=== PATIENT | female | born 1990 | race Caucasian/White ===

== ENCOUNTER 2017-01-16 00:03 | Emergency (ER) | payer OTHER ==
[~2017-01-16] VITALS: Ht 162.6 cm; Wt 81.6 kg
[2017-01-16 00:05] VITALS: BP_SYST 130
[2017-01-16 00:45] LABS: BASOPHILS % (AUTO) 0.6 % (0.0-2.0); EOSINOPHILS # (AUTO) 0.1 K/uL (0.0-0.4); EOSINOPHILS % (AUTO) 1.8 % (0.0-4.0); HEMATOCRIT 41.5 % (36-48); HEMOGLOBIN 13.9 g/dL (12.0-16.0); LYMPHOCYTES # (AUTO) 2.2 K/uL (1.0-5.5); LYMPHOCYTES % (AUTO) 35.8 % (20.5-51.5); MEAN CORPUSCULAR HEMOGLOBIN 30 pg (27-31); MEAN CORPUSCULAR HGB CONC 34 % (32-36); MEAN CORPUSCULAR VOLUME 91 fL (79.0-98.0); MONOCYTES # (AUTO) 0.3 K/uL (0.0-1.0); MONOCYTES % (AUTO) 5.1 % (1.7-9.3); NEUTROPHILS # (AUTO) 3.5 K/uL (1.8-7.7); NEUTROPHILS % (AUTO) 56.7 % (40.0-70.0); PLATELET COUNT (AUTO) 222 K/uL (130-430); RED BLOOD CELL COUNT(AUTO) 4.57 MIL/uL (4.2-6.2); RED CELL DISTRIBUTION WIDTH 12.3 % (9.0-15.0); WHITE BLOOD COUNT (AUTO) 6.1 K/uL (4.8-10.8)
[2017-01-16 00:50] LABS: CALCIUM 8.8 mg/dL (8.4-11.0); CREATININE 0.81 mg/dL (0.55-1.30); POTASSIUM 3.4 mmol/L (3.5-5.1)
[2017-01-16 00:56] LABS: ALBUMIN 3.8 g/dL (3.4-4.8); TOTAL BILIRUBIN 0.3 mg/dL (0.0-1.0); TOTAL PROTEIN, SERUM 7.4 g/dL (6.4-8.3)
[2017-01-16] MEDS ORDERED: LORazepam 1 MG TABLET PO ONE (01:00)
[2017-01-16 01:50] VITALS: BP_SYST 105
== END 2017-01-16 01:50 | disposition home or self-care (01) ==
LOC: SED 00:03
DX: R07.89 Other chest pain (principal); Z88.8 Allergy status to other drugs, medicaments and biological substances; Z91.040 Latex allergy status
CPT/HCPCS: 36415; 71010; 80053; 84484; 85025; 93005; 99285

== ENCOUNTER 2018-10-13 12:04 | Emergency (ER) | payer MEDICAID, OTHER ==
[~2018-10-13] VITALS: Ht 162.6 cm; Wt 90.7 kg
[2018-10-13 12:06] VITALS: BP_SYST 141
--- NOTE | 2018-10-13 15:06 | NUR ---
Unable to locate patient to bring back to triage.
--- NOTE | 2018-10-13 15:15 | NUR ---
Unable to locate patient to bring back to room.
== END 2018-10-13 15:06 | disposition left against medical advice (07) ==
LOC: SED 12:04
DX: M79.602 Pain in left arm (principal); Z53.21 Procedure and treatment not carried out due to patient leaving prior to being seen by health care provider

== ENCOUNTER 2019-02-01 15:53 | Emergency (ER) | payer MEDICAID ==
[~2019-02-01] VITALS: Ht 162.6 cm; Wt 77.1 kg
[2019-02-01 16:17] VITALS: BP_SYST 106
[2019-02-01 16:40] VITALS: BP_SYST 106
== END 2019-02-01 16:40 | disposition home or self-care (01) ==
LOC: SED 15:53
DX: S80.862A Insect bite (nonvenomous), left lower leg, initial encounter (principal); S80.861A Insect bite (nonvenomous), right lower leg, initial encounter; Z88.6 Allergy status to analgesic agent; Z88.8 Allergy status to other drugs, medicaments and biological substances; Z91.040 Latex allergy status; W57.XXXA Bitten or stung by nonvenomous insect and other nonvenomous arthropods, initial encounter; Y93.89 Activity, other specified; Y92.89 Other specified places as the place of occurrence of the external cause; Y99.8 Other external cause status
CPT/HCPCS: 99283

== ENCOUNTER 2019-02-07 08:57 | Emergency (ER) | payer MEDICAID ==
[~2019-02-07] VITALS: Ht 162.6 cm; Wt 77.1 kg
[2019-02-07 09:15] VITALS: BP_SYST 107
[2019-02-07 11:01] VITALS: BP_SYST 131
== END 2019-02-07 11:02 | disposition home or self-care (01) ==
LOC: SED 08:57
DX: J06.9 Acute upper respiratory infection, unspecified (principal); J45.909 Unspecified asthma, uncomplicated; G44.209 Tension-type headache, unspecified, not intractable; R11.2 Nausea with vomiting, unspecified; Z88.6 Allergy status to analgesic agent; Z91.040 Latex allergy status
CPT/HCPCS: 99283; J7030

== ENCOUNTER 2019-03-13 12:05 | Emergency (ER) | payer MEDICAID ==
[~2019-03-13] VITALS: Ht 162.6 cm; Wt 72.6 kg
--- NOTE | 2019-03-13 12:14 | NUR ---
Patient to ER bed 06 to gown for evaluation. Side rails up.
[2019-03-13 12:15] VITALS: BP_SYST 109
--- NOTE | 2019-03-13 12:45 | NUR ---
Patient presented to ER with C/O Hypoglycemia. Patient A&Ox4, afebrile, ambulatory to ER, denies pain, denies N/V/D. Patient states she has new diagnosis of diabetes type 1. Patient states she checked glucose this AM before breakfast(39) per MD order, glucose was 39. Patient states she had breakfast, rechecked glucose at home (76), took PO meds: Metapress & Glucose tablet, called PMD office. BUSINESS IMPROVEMENT MANAGER at PMD office, Dr. Clarence Montoya referred patient to ER.
--- NOTE | 2019-03-13 13:12 | NUR ---
ER Dr. Stevenson at bedside examining patient.
[2019-03-13 13:40] LABS: BASOPHILS # (AUTO) 0.1 K/uL (0.0-0.2); BASOPHILS % (AUTO) 0.9 % (0.0-2.0); EOSINOPHILS # (AUTO) 0.1 K/uL (0.0-0.4); EOSINOPHILS % (AUTO) 0.8 % (0.0-4.0); HEMATOCRIT 35.9 % (36-48); HEMOGLOBIN 12.2 g/dL (12.0-16.0); LYMPHOCYTES # (AUTO) 2.4 K/uL (1.0-5.5); LYMPHOCYTES % (AUTO) 31.3 % (20.5-51.5); MEAN CORPUSCULAR HEMOGLOBIN 30 pg (27-31); MEAN CORPUSCULAR HGB CONC 34 % (32-36); MEAN CORPUSCULAR VOLUME 90 fL (79.0-98.0); MONOCYTES # (AUTO) 0.5 K/uL (0.0-1.0); MONOCYTES % (AUTO) 6.1 % (1.7-9.3); NEUTROPHILS # (AUTO) 4.7 K/uL (1.8-7.7); NEUTROPHILS % (AUTO) 60.9 % (40.0-70.0); PLATELET COUNT (AUTO) 262 K/uL (130-430); RED CELL DISTRIBUTION WIDTH 14.4 % (9.0-15.0); WHITE BLOOD COUNT (AUTO) 7.8 K/uL (4.8-10.8)
[2019-03-13 13:51] LABS: CREATININE 0.72 mg/dL (0.55-1.30); POTASSIUM 3.6 mmol/L (3.5-5.1)
[2019-03-13 14:05] LABS: ALBUMIN 3.5 g/dL (3.4-4.8); FREE T4 (FREE THYROXINE) 1.1 ng/dl (0.8-1.5); THYROID STIMULATING HORMONE 1.61 uIu/mL (0.36-3.74); TOTAL BILIRUBIN 0.2 mg/dL (0.0-1.0)
--- NOTE | 2019-03-13 15:30 | NUR ---
Patient awake alert sitting up in [facility].
--- NOTE | 2019-03-13 16:15 | NUR ---
ER Dr. Stevenson at bedside discussing test results patient.
[2019-03-13 16:30] VITALS: BP_SYST 109
--- NOTE | 2019-03-13 16:34 | NUR ---
Patient given written and verbal discharge instructions and verbalizes understanding. ER MD discussed with patient the results and treatment provided. Patient in stable condition. ID arm band removed. No Rx given. Patient educated on pain management and to follow up with PMD. Pain Scale 0/10. Opportunity for questions provided and answered. Medication side effect fact sheet provided.
[2019-03-15 11:09] LABS: CORTISOL (SERUM) 2.8 ug/dL (.)
== END 2019-03-13 16:34 | disposition home or self-care (01) ==
LOC: SED 12:05
DX: E16.2 Hypoglycemia, unspecified (principal); J45.909 Unspecified asthma, uncomplicated; Z88.6 Allergy status to analgesic agent; Z88.8 Allergy status to other drugs, medicaments and biological substances; Z91.040 Latex allergy status
CPT/HCPCS: 36415; 80053; 81002; 81025; 82533; 82962; 84439; 84443-TC; 84479; 85025; 99283

== ENCOUNTER 2019-04-20 17:39 | Emergency (ER) | payer MEDICAID ==
[~2019-04-20] VITALS: Ht 162.6 cm; Wt 79.4 kg
[2019-04-20 17:55] VITALS: BP_SYST 115
--- NOTE | 2019-04-20 18:13 | NUR ---
Patient to ER bed 1 to gown for evaluation. Side rails up. Report given to Tam LOAIZA.
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
--- NOTE | 2019-04-20 18:20 | NUR ---
ER Dr. yu at bedside examining patient.
--- NOTE | 2019-04-20 18:20 | NUR ---
ER WHIT Ramirez examining patient.
[2019-04-20] MEDS ORDERED: HYDROcodone/ACETAMIN 7.5-325 MG TAB PO ONE (18:30)
[2019-04-20] MEDS ORDERED: DEXAMETHASONE SOD PHOSPHATE 10 MG/ML VIAL IM ONE (18:30)
--- NOTE | 2019-04-20 18:30 | NUR ---
Patient is unable to provide a urine sample at this time. Patient was informed that WHIT Ramirez would be unable to provide pain medication until a test can be done. Patient verbalized understanding. Ashley made aware.
--- NOTE | 2019-04-20 19:03 | NUR ---
Patient wishes to speak with ASPARAGUS BUNCHER Ashley.
--- NOTE | 2019-04-20 19:08 | NUR ---
Note undone in EDM - 04/20/19 at 1912 by [email or web address] Patient given written and verbal discharge instructions and verbalizes understanding. ER discussed with patient the results and treatment provided. Patient in stable condition. ID arm band removed. Rx of tramadol, tylenol extra, voltaren 1% given. Patient educated on pain management and to follow up with PMD. Pain Scale /, WHIT Ramirez is aware. Opportunity for questions provided and answered. Medication side effect fact sheet provided.
--- NOTE | 2019-04-20 19:08 | NUR ---
Patient given written and verbal discharge instructions and verbalizes understanding. ER MD discussed with patient the results and treatment provided. Patient in stable condition. ID arm band removed. Rx of tramadol, tylenol extra, voltaren 1% given. Patient educated on pain management and to follow up with PMD. Pain Scale 8/10, GARAGE DOOR INSTALLER Ashley is aware. Opportunity for questions provided and answered. Medication side effect fact sheet provided.
[2019-04-20 19:14] VITALS: BP_SYST 115
== END 2019-04-20 19:14 | disposition home or self-care (01) ==
LOC: SED 17:39
DX: M54.17 Radiculopathy, lumbosacral region (principal); R03.0 Elevated blood-pressure reading, without diagnosis of hypertension; J45.909 Unspecified asthma, uncomplicated; Z88.6 Allergy status to analgesic agent; Z88.8 Allergy status to other drugs, medicaments and biological substances; Z91.040 Latex allergy status
CPT/HCPCS: 81025; 96372; 99283; J1100

== ENCOUNTER 2019-06-19 20:33 | Emergency (ER) | payer MEDICAID ==
[~2019-06-19] VITALS: Ht 162.6 cm; Wt 99.8 kg
[2019-06-19 20:40] VITALS: BP_SYST 136
--- NOTE | 2019-06-19 20:45 | NUR ---
Patient to ER bed 6 to gown for evaluation. Side rails up. Report given to NICOLÁS LOAIZA.
--- NOTE | 2019-06-19 20:49 | NUR ---
Pt presents to ER with c/o abdominal pain radiating to throat. Pt A&Ox4. Pt states pain began this morning. Pt states pain is 10/10. Upon inspection, pt has no voice. Pt states history of pneumothorax and asthma. Pt states no nausea or vomiting noted. Will continue to monitor.
--- NOTE | 2019-06-19 20:51 | NUR ---
ER Dr. Encarnacion at bedside examining patient.
[2019-06-19] MEDS ORDERED: PANTOPRAZOLE SODIUM 40 MG TAB PO ONE (21:00)
--- NOTE | 2019-06-19 21:00 | NUR ---
# 20 gauge angiocath placed to L AC. Use of asceptic technique. Opsite placed over site. Blood return noted. Flushed with 10 cc of normal saline. No evidence of infiltration noted. Patient tolerated well.
[2019-06-19] MEDS ORDERED: PANTOPRAZOLE SODIUM 40 MG/VIAL (PROTONIX) IVP ONE (21:15)
--- NOTE | 2019-06-19 21:36 | NUR ---
Pt medicated. Pt tolerated well.
[2019-06-19] MEDS ORDERED: MORPHINE 2 MG/ML INJ. SYRINGE IVP ONE (22:15)
--- NOTE | 2019-06-19 22:40 | NUR ---
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
[2019-06-19 23:34] VITALS: BP_SYST 130
--- NOTE | 2019-06-19 23:34 | NUR ---
Patient given written and verbal discharge instructions and verbalizes understanding. ER MD Encarnacion discussed with patient the results and treatment provided. Patient in stable condition. ID arm band removed. IV catheter removed intact and dressing applied, no active bleeding. Rx of Pepcid given. Patient educated on pain management and to follow up with PMD. Pain Scale 1/10. Opportunity for questions provided and answered. Medication side effect fact sheet provided.
== END 2019-06-19 23:34 | disposition home or self-care (01) ==
LOC: SED 20:33
DX: R12 Heartburn (principal); K21.9 Gastro-esophageal reflux disease without esophagitis; Z88.6 Allergy status to analgesic agent; Z91.040 Latex allergy status; Z88.8 Allergy status to other drugs, medicaments and biological substances; J45.909 Unspecified asthma, uncomplicated; Z98.890 Other specified postprocedural states
CPT/HCPCS: 96374; 96375; 99283; C9113; J2270

== ENCOUNTER 2019-08-29 07:33 | Emergency (ER) | payer OTHER, MEDICAID ==
[~2019-08-29] VITALS: Ht 162.6 cm; Wt 102.5 kg
[2019-08-29 07:33] VITALS: BP_SYST 108
--- NOTE | 2019-08-29 07:33 | NUR ---
BROUGHT BACK TO BED #5 AND TRIAGED, PT AMBULATORY, REPORT GIVEN TO ESTELITA
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
--- NOTE | 2019-08-29 07:37 | NUR ---
DR SANTOS AT BEDSIDE FOR EVALUATION
--- NOTE | 2019-08-29 08:19 | NUR ---
XR at bedside for exam.
--- NOTE | 2019-08-29 08:21 | NUR ---
Report given to FADIA Ramos.
[2019-08-29] MEDS ORDERED: NAPROXEN 250 MG TABLET PO ONE (08:30)
--- NOTE | 2019-08-29 08:40 | NUR ---
Patient given written and verbal discharge instructions and verbalizes understanding. ER MD discussed with patient the results and treatment provided. Patient in stable condition. ID arm band removed. Rx of NAPROXYN given. Patient educated on pain management and to follow up with PMD. Pain Scale 1/10. Opportunity for questions provided and answered. Medication side effect fact sheet provided.
[2019-08-29 08:42] VITALS: BP_SYST 110
== END 2019-08-29 08:40 | disposition home or self-care (01) ==
LOC: SED 07:33
DX: S83.92XA Sprain of unspecified site of left knee, initial encounter (principal); J45.909 Unspecified asthma, uncomplicated; E16.2 Hypoglycemia, unspecified; Z88.6 Allergy status to analgesic agent; Z88.8 Allergy status to other drugs, medicaments and biological substances; Z91.040 Latex allergy status; W18.39XA Other fall on same level, initial encounter; Y93.89 Activity, other specified; Y92.89 Other specified places as the place of occurrence of the external cause; Y99.8 Other external cause status
CPT/HCPCS: 73564; 99283

== ENCOUNTER 2019-09-03 10:35 | Emergency (ER) | payer OTHER, MEDICAID ==
[~2019-09-03] VITALS: Ht 162.6 cm; Wt 102.5 kg
--- NOTE | 2019-09-03 10:47 | NUR ---
Ilana granda in ED - 09/03/19 at 1047 by FARNAZ Patient to bed 3 to [facility] for evaluation. Side rails up. Report given to FADIA Mccloud.
--- NOTE | 2019-09-03 10:50 | NUR ---
PATIENT TO ER #5, PLACED ON MONITOR, SAO2 ABP
[2019-09-03] MEDS ORDERED: NACL 0.9% 1,000 ML IV ONE (11:00)
[2019-09-03 11:14] VITALS: BP_SYST 111
[2019-09-03] MEDS ORDERED: PHEL5 PO (11:14)
[2019-09-03] MEDS ORDERED: ACET-2634 PO (11:14)
[2019-09-03] MEDS ORDERED: FLOEARD EACH EAR (11:14)
--- NOTE | 2019-09-03 11:24 | NUR ---
KNEE BRACE IN PLACE, LEFT KNEE
--- NOTE | 2019-09-03 11:45 | NUR ---
rPatient transported to radiology via wheelchar, accompanied by medardostaff.
[2019-09-03 11:51] LABS: BASOPHILS % (AUTO) 0.5 % (0.0-2.0); HEMATOCRIT 42.1 % (36-48); HEMOGLOBIN 13.7 g/dL (12.0-16.0); LYMPHOCYTES # (AUTO) 0.9 K/uL (1.0-5.5); LYMPHOCYTES % (AUTO) 13.3 % (20.5-51.5); MEAN CORPUSCULAR HEMOGLOBIN 29 pg (27-31); MEAN CORPUSCULAR HGB CONC 33 % (32-36); MEAN CORPUSCULAR VOLUME 89 fL (79.0-98.0); MONOCYTES # (AUTO) 0.6 K/uL (0.0-1.0); MONOCYTES % (AUTO) 8.2 % (1.7-9.3); NEUTROPHILS # (AUTO) 5.3 K/uL (1.8-7.7); PLATELET COUNT (AUTO) 228 K/uL (130-430); RED BLOOD CELL COUNT(AUTO) 4.73 MIL/uL (4.2-6.2); RED CELL DISTRIBUTION WIDTH 15.1 % (9.0-15.0); WHITE BLOOD COUNT (AUTO) 6.8 K/uL (4.8-10.8)
[2019-09-03 12:01] LABS: CALCIUM 8.9 mg/dL (8.4-11.0); CREATININE 0.79 mg/dL (0.55-1.30); POTASSIUM 3.7 mmol/L (3.5-5.1)
[2019-09-03 12:06] LABS: ALBUMIN 3.8 g/dL (3.4-4.8); TOTAL BILIRUBIN 0.4 mg/dL (0.0-1.0)
[2019-09-03] MEDS ORDERED: OSELTAMIVIR PHOSPHATE 75 MG CAPSULE PO ONE (12:15)
[2019-09-03 12:37] LABS: BILIRUBIN,URINE NEGATIVE (NEGATIVE); BLOOD, URINE NEGATIVE (NEGATIVE); CLARITY/URINE CLOUDY (CLEAR); COLOR,URINE YELLOW (YELLOW); GLUCOSE,URINE NEGATIVE (NEGATIVE); KETONES,URINE 1+ (NEGATIVE); LEUKOCYTE ESTERASE ,URINE NEGATIVE (NEGATIVE); NITRITE, URINE NEGATIVE (NEGATIVE); PROTEIN URINE TRACE (NEGATIVE)
[2019-09-03 12:57] LABS: BACTERIA,URINE None Seen /HPF (None Seen); RBC,URINE 0-3 /HPF (0-3); WBC,URINE 0-3 /HPF (0-3)
[2019-09-03 12:58] LABS: URINE AMORPHOUS URATE 4+ /HPF (None Seen)
--- NOTE | 2019-09-03 13:20 | NUR ---
Patient given written and verbal discharge instructions and verbalizes understanding. ER MD discussed with patient the results and treatment provided. Patient in stable condition. ID arm band removed. IV catheter removed intact and dressing applied, no active bleeding. Rx of Tamiflu given. Patient educated on pain management and to follow up with PMD. Pain Scale 0/10. Opportunity for questions provided and answered. Medication side effect fact sheet provided.
[2019-09-03 13:50] VITALS: BP_SYST 111
== END 2019-09-03 13:50 | disposition home or self-care (01) ==
LOC: SED 10:35
DX: J10.1 Influenza due to other identified influenza virus with other respiratory manifestations (principal); Z88.8 Allergy status to other drugs, medicaments and biological substances; Z91.040 Latex allergy status; Z79.899 Other long term (current) drug therapy; J45.909 Unspecified asthma, uncomplicated
CPT/HCPCS: 36415; 71046; 80053; 81000; 83605; 85025; 86710; 87040; 87086; 99284; G9035; J7030; 99285

== ENCOUNTER 2019-10-26 09:00 | Emergency (ER) | payer OTHER, MEDICAID ==
[~2019-10-26] VITALS: Ht 165.1 cm; Wt 99.8 kg
[~2019-10-26 09:00] MED LIST: ACET-2634 PO; FLOEARD EACH EAR; PHEL5 PO
[2019-10-26 09:15] VITALS: BP_SYST 108
[2019-10-26] MEDS ORDERED: CEPHALEXIN 500 MG CAPSULE PO ONE (09:30)
[2019-10-26] MEDS ORDERED: DIPHENHYDRAMINE HCL 25 MG CAPSULE PO ONE (09:30)
[2019-10-26 09:58] VITALS: BP_SYST 132
== END 2019-10-26 09:58 | disposition home or self-care (01) ==
LOC: SED 09:00
DX: L03.116 Cellulitis of left lower limb (principal); J45.909 Unspecified asthma, uncomplicated; Z88.6 Allergy status to analgesic agent; Z88.8 Allergy status to other drugs, medicaments and biological substances; Z91.040 Latex allergy status; Z79.899 Other long term (current) drug therapy
CPT/HCPCS: 99283; Q0163

== ENCOUNTER 2020-03-09 15:39 | Emergency (ER) | payer OTHER, MEDICAID ==
[~2020-03-09] VITALS: Ht 162.6 cm; Wt 104.3 kg
[2020-03-09 15:39] VITALS: BP_SYST 139
--- NOTE | 2020-03-09 15:39 | NUR ---
BROUGHT BACK TO BED #8 AND TRIAGED. REPORT GIVEN TO SHAYLA
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
--- NOTE | 2020-03-09 16:00 | NUR ---
Dr Ellis evaluating patient at bedside
[2020-03-09] MEDS ORDERED: HYDROcodone/ACETAMIN 5-325 MG TAB (NORCO/ VICODIN) PO ONE (16:30)
[2020-03-09 17:43] VITALS: BP_SYST 139
--- NOTE | 2020-03-09 17:44 | NUR ---
Patient given written and verbal discharge instructions and verbalizes understanding. ER MD discussed with patient the results and treatment provided. Patient in stable condition. ID arm band removed. No Rx given. Patient educated on pain management and to follow up with PMD. Pain Scale 3/10 tolerable for pt. Opportunity for questions provided and answered. Medication side effect fact sheet provided.
== END 2020-03-09 17:44 | disposition home or self-care (01) ==
LOC: SED 15:39
DX: S63.502A Unspecified sprain of left wrist, initial encounter (principal); J45.909 Unspecified asthma, uncomplicated; E16.2 Hypoglycemia, unspecified; Z79.899 Other long term (current) drug therapy; Z91.040 Latex allergy status; Z88.6 Allergy status to analgesic agent; Z88.8 Allergy status to other drugs, medicaments and biological substances; W22.8XXA Striking against or struck by other objects, initial encounter; Y93.89 Activity, other specified; Y92.89 Other specified places as the place of occurrence of the external cause; Y99.8 Other external cause status
CPT/HCPCS: 99283

== ENCOUNTER 2020-03-10 11:28 | Emergency (ER) | payer OTHER, MEDICAID ==
[~2020-03-10] VITALS: Ht 162.6 cm; Wt 104.3 kg
[2020-03-10 11:28] VITALS: BP_SYST 122
[2020-03-10 12:06] VITALS: BP_SYST 122
== END 2020-03-10 12:07 | disposition home or self-care (01) ==
LOC: SED 11:28
DX: M25.532 Pain in left wrist (principal); J45.909 Unspecified asthma, uncomplicated; E16.2 Hypoglycemia, unspecified; Z79.899 Other long term (current) drug therapy; Z88.6 Allergy status to analgesic agent; Z91.040 Latex allergy status
CPT/HCPCS: 99281; J7030

== ENCOUNTER 2020-03-15 05:30 | Day surgery (SDC) | payer OTHER, MEDICAID ==
[2020-03-08 12:35] LABS: BILIRUBIN,URINE NEGATIVE (NEGATIVE); BLOOD, URINE NEGATIVE (NEGATIVE); CLARITY/URINE CLEAR (CLEAR); COLOR,URINE YELLOW (YELLOW); GLUCOSE,URINE NEGATIVE (NEGATIVE); KETONES,URINE NEGATIVE (NEGATIVE); LEUKOCYTE ESTERASE ,URINE NEGATIVE (NEGATIVE); NITRITE, URINE NEGATIVE (NEGATIVE); PH,URINE 5.5 (5.0-8.0); PROTEIN URINE NEGATIVE (NEGATIVE); UROBILINOGEN,URINE 0.2 (0.2-1.0)
[2020-03-08 12:37] LABS: BASOPHILS # (AUTO) 0.1 K/uL (0.0-0.2); BASOPHILS % (AUTO) 1.2 % (0.0-2.0); EOSINOPHILS % (AUTO) 0.7 % (0.0-4.0); HEMATOCRIT 40.9 % (36-48); HEMOGLOBIN 13.4 g/dL (12.0-16.0); LYMPHOCYTES % (AUTO) 28.2 % (20.5-51.5); MEAN CORPUSCULAR HEMOGLOBIN 29 pg (27-31); MEAN CORPUSCULAR HGB CONC 33 % (32-36); MEAN CORPUSCULAR VOLUME 87 fL (79.0-98.0); MONOCYTES # (AUTO) 0.3 K/uL (0.0-1.0); MONOCYTES % (AUTO) 4.8 % (1.7-9.3); NEUTROPHILS # (AUTO) 4.6 K/uL (1.8-7.7); NEUTROPHILS % (AUTO) 65.1 % (40.0-70.0); PLATELET COUNT (AUTO) 261 K/uL (130-430); RED BLOOD CELL COUNT(AUTO) 4.69 MIL/uL (4.2-6.2); RED CELL DISTRIBUTION WIDTH 14.3 % (9.0-15.0); WHITE BLOOD COUNT (AUTO) 7.1 K/uL (4.8-10.8)
[2020-03-08 12:50] LABS: ALBUMIN 3.6 g/dL (3.4-4.8); CALCIUM 8.9 mg/dL (8.4-11.0); CREATININE 0.69 mg/dL (0.55-1.30); POTASSIUM 3.6 mmol/L (3.5-5.1); TOTAL BILIRUBIN 0.3 mg/dL (0.0-1.0)
[2020-03-08 13:15] LABS: PROTHROMBIN TIME 10.5 SECS (9.5-12.5)
[~2020-03-15] VITALS: Ht 162.6 cm; Wt 104.3 kg
[2020-03-15 05:57] LABS: HCG,QUAL RESULT NEGATIVE (NEGATIVE)
[2020-03-15] MEDS ORDERED: CEFAZOLIN SOD 2 GM in D5W 50 ML IV ONE (07:00)
[2020-03-15] MEDS ORDERED: ROCURONIUM BROMIDE 10 MG/ML (ZEMURON) IV ONE (07:30)
[2020-03-15] MEDS ORDERED: BUPIVACAINE /EPINEPHRINE/PF 0.25% 30 ML VIAL INJ ONE (07:30)
[2020-03-15] MEDS ORDERED: MIDAZOLAM HCL 5 MG/5 ML VIAL IVP ONE (07:30)
[2020-03-15] MEDS ORDERED: NEOSTIGMINE METHYLSULFATE 1 MG/ML, 10 ML VIAL IVP ONE (07:30)
[2020-03-15] MEDS ORDERED: LR 1,000 ML IV.SOLN IV ONE (07:30)
[2020-03-15] MEDS ORDERED: fentaNYL CITRATE/PF 100 MCG/2 ML AMP IVP ONE (07:30)
[2020-03-15] MEDS ORDERED: SUCCINYLCHOLINE CHLORIDE 20 MG/ML(QUELICIN) IVP ONE (07:30)
[2020-03-15] MEDS ORDERED: BUPIVACAINE /EPINEPHRINE/PF 0.5% 30 ML VIAL INJ ONE (07:30)
[2020-03-15] MEDS ORDERED: SEVOFLURANE 15 MIN GAS INH ONE (07:30)
[2020-03-15] MEDS ORDERED: PROPOFOL 200MG/ 20ML VIAL (DIPRIVAN) IV ONE (07:30)
[2020-03-15] MEDS ORDERED: ONDANSETRON HCL 4 MG/2 ML VIAL IVP ONE (07:30)
[2020-03-15] MEDS ORDERED: LR 1,000 ML IV SCH (08:57)
[2020-03-15] MEDS ORDERED: NALOXONE HCL 0.4 MG/ML AMP (NARCAN) IVP PRN (09:00)
[2020-03-15] MEDS ORDERED: HYDROmorphone 1 MG INJ. 1 MG/ML AMPUL IVP PRN ×2 (09:00)
[2020-03-15] MEDS ORDERED: HYDROcodone/ACETAMIN 5-325 MG TAB (NORCO/ VICODIN) PO PRN (09:00)
[2020-03-15] MEDS ORDERED: ONDANSETRON HCL 4 MG/2 ML VIAL IVP PRN ×2 (09:00)
[2020-03-15 12:10] VITALS: BP_SYST 110
[2020-03-15] MEDS: HYDROcodone/ACETAMIN 5-325 MG TAB (NORCO/ VICODIN) PO PRN (12:10)
[2020-03-15] MEDS ORDERED: HYDROcodone/ACETAMIN 5-325 MG TAB (NORCO/ VICODIN) ONE (12:26)
== END 2020-03-15 12:43 | disposition home or self-care (01) ==
LOC: SDS 05:30 → SMU 05:30 → SDS 12:43
PROVIDERS: ATTEND Obstetrics & Gynecology Gynecology
DX: Z30.2 Encounter for sterilization (principal); Z20.828 Contact with and (suspected) exposure to other viral communicable diseases; J45.909 Unspecified asthma, uncomplicated; E66.01 Morbid (severe) obesity due to excess calories; F43.10 Post-traumatic stress disorder, unspecified; F41.9 Anxiety disorder, unspecified; Z79.01 Long term (current) use of anticoagulants; Z79.899 Other long term (current) drug therapy
CPT/HCPCS: 36415; 58670; 80053; 81003; 84703 ×2; 85025; 85610; 85730; 86870 ×2; 86886 ×2; 86900 ×2; 86901 ×2; 87086; C1727; J0330; J0690; J2250; J2405; J2704; J2710; J3010; J3490 ×2; J7060; J7120; U0003

== ENCOUNTER 2020-04-12 09:53 | Emergency (ER) | payer OTHER, MEDICAID ==
[~2020-04-12] VITALS: Ht 162.6 cm; Wt 113.4 kg
[2020-04-12 09:53] VITALS: BP_SYST 106
--- NOTE | 2020-04-12 09:53 | NUR ---
Patient to ER bed 4 to gown for evaluation. Side rails up. Report given to FADIA Beck.
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
--- NOTE | 2020-04-12 10:06 | NUR ---
ER Dr. Denny at bedside examining patient.
--- NOTE | 2020-04-12 10:10 | NUR ---
# 20 gauge angiocath placed to LFA. Use of asceptic technique. Opsite placed over site. Blood return noted. Blood for lab drawn from site. Flushed with 10 cc of normal saline. No evidence of infiltration noted. Patient tolerated well.
[2020-04-12] MEDS ORDERED: MORPHINE 4 MG/ML INJ. SYRINGE IVP ONE (10:15)
[2020-04-12] MEDS ORDERED: ONDANSETRON HCL 4 MG/2 ML VIAL IVP ONE (10:15)
--- NOTE | 2020-04-12 10:20 | NUR ---
chief technologist at bedside collecting blood specimen as ordered by Dr. Denny. Patient tolerated the procedure well.
--- NOTE | 2020-04-12 10:22 | NUR ---
Administered Zofran and Morphine Sulfate IVP as ordered by Dr. Denny. Patient tolerated the medications well. See eMAR for details.
[2020-04-12 10:38] LABS: BASOPHILS # (AUTO) 0.1 K/uL (0.0-0.2); EOSINOPHILS % (AUTO) 0.8 % (0.0-4.0); HEMATOCRIT 39.5 % (36-48); HEMOGLOBIN 13.1 g/dL (12.0-16.0); LYMPHOCYTES # (AUTO) 1.8 K/uL (1.0-5.5); MEAN CORPUSCULAR HEMOGLOBIN 29 pg (27-31); MEAN CORPUSCULAR HGB CONC 33 % (32-36); MEAN CORPUSCULAR VOLUME 86 fL (79.0-98.0); MONOCYTES # (AUTO) 0.4 K/uL (0.0-1.0); MONOCYTES % (AUTO) 5.7 % (1.7-9.3); NEUTROPHILS % (AUTO) 63.5 % (40.0-70.0); PLATELET COUNT (AUTO) 241 K/uL (130-430); RED BLOOD CELL COUNT(AUTO) 4.59 MIL/uL (4.2-6.2); RED CELL DISTRIBUTION WIDTH 15.1 % (9.0-15.0); WHITE BLOOD COUNT (AUTO) 6.3 K/uL (4.8-10.8)
[2020-04-12 10:52] LABS: CALCIUM 8.4 mg/dL (8.4-11.0); CREATININE 0.56 mg/dL (0.55-1.30)
[2020-04-12 10:55] LABS: PROTHROMBIN TIME 10.5 SECS (9.5-12.5)
[2020-04-12] MEDS ORDERED: LORazepam 2 MG/ML VIAL IVP ONE (11:30)
--- NOTE | 2020-04-12 11:39 | NUR ---
Patient is taken to MRI, in stable condition.
--- NOTE | 2020-04-12 15:08 | NUR ---
Soft c-collar applied. Patient tolerated well.
[2020-04-12 15:40] VITALS: BP_SYST 106
--- NOTE | 2020-04-12 15:40 | NUR ---
Patient given written and verbal discharge instructions and verbalizes understanding. ER MD discussed with patient the results and treatment provided. Patient in stable condition. ID arm band removed. IV catheter removed intact and dressing applied, no active bleeding. Rx of Tramadol, Zofran, and Tylenol given. Patient educated on pain management and to follow up with PMD. Pain Scale 0/10. Opportunity for questions provided and answered. Medication side effect fact sheet provided.
== END 2020-04-12 15:40 | disposition home or self-care (01) ==
LOC: SED 09:53
DX: M54.2 Cervicalgia (principal); J45.909 Unspecified asthma, uncomplicated; E16.2 Hypoglycemia, unspecified; Z79.899 Other long term (current) drug therapy; Z88.6 Allergy status to analgesic agent; Z91.040 Latex allergy status
CPT/HCPCS: 36415; 70450; 72125; 72141; 80048; 84703; 85025; 85610; 85730; 96374; 96375; 99285; J2060; J2270; J2405

== ENCOUNTER 2020-04-21 09:24 | Outpatient (CLI) | payer OTHER, MEDICAID | END 2020-04-21 20:33 | disposition home or self-care (01) | LOC: SCT 09:24 | PROVIDERS: ATTEND Psychiatry & Neurology Neurology with Special Qualifications in Child Neurology | DX: G43.909 Migraine, unspecified, not intractable, without status migrainosus (principal); S09.90XA Unspecified injury of head, initial encounter; X58.XXXA Exposure to other specified factors, initial encounter; Y93.9 Activity, unspecified; Y92.9 Unspecified place or not applicable; Y99.9 Unspecified external cause status | CPT/HCPCS: 70450-TC ==

== ENCOUNTER 2020-05-18 07:16 | Emergency (ER) | payer BC, MEDICAID ==
[~2020-05-18] VITALS: Ht 162.6 cm; Wt 103.9 kg
[2020-05-18 07:25] VITALS: BP_SYST 123
[2020-05-18 08:20] VITALS: BP_SYST 123
== END 2020-05-18 08:20 | disposition home or self-care (01) ==
LOC: SED 07:16
DX: U07.1 COVID-19 (principal); J06.9 Acute upper respiratory infection, unspecified; R73.9 Hyperglycemia, unspecified; J45.909 Unspecified asthma, uncomplicated; Z79.899 Other long term (current) drug therapy; Z88.6 Allergy status to analgesic agent; Z91.040 Latex allergy status
CPT/HCPCS: 99283; 81002; C9803; U0003

== ENCOUNTER 2021-02-22 06:31 | Emergency (ER) | payer OTHER, MEDICAID, SELFPAY ==
[~2021-02-22] VITALS: Ht 162.6 cm; Wt 102.1 kg
[2021-02-22 06:40] VITALS: BP_SYST 94
--- NOTE | 2021-02-22 06:40 | NUR ---
Patient to ER TENT 1 to gown for evaluation. Side rails up.
--- NOTE | 2021-02-22 07:02 | NUR ---
DR. [facility]EN [facility].
--- NOTE | 2021-02-22 07:05 | NUR ---
PATIENT AAOX4 AND AMBULATORY C/O SOB AND DIFFICULTY BREATHING SINCE 4:30 AM. HISTORY OF ASTHMA. CAME INTO CONTACT WITH MOTHERS BOYFRIEND WHO TESTED POSITIVE WITH COVID YESTERDAY. STATING HAVING FEVER X 2 DAYS, CHILLS, INCREASED WEAKNESS. CURRENTLY STATING HAVING CHEST DISCOMFORT STATING 9/10. TACHYCARDIA AND TACHYPNEA. TOOK 2 BREATHING NEBULIZED TX AT HOME PRIOR TO ARRIVAL.
--- NOTE | 2021-02-22 07:10 | NUR ---
Assumed care of patient, currently resting in bed, no acute distress noted.
[2021-02-22] MEDS ORDERED: NACL 0.9% 1,000 ML IV ONE ×2 (07:15→10:30)
[2021-02-22] MEDS ORDERED: IPRATROPIUM/ALBUTEROL SULFATE 3 ML AMPUL.NEB (DUONEB) INH ONE (07:15)
--- NOTE | 2021-02-22 07:30 | NUR ---
# 20 gauge angiocath placed to RAC. Use of asceptic technique. Opsite placed over site. Blood return noted. Blood for lab drawn from site. Flushed with 10 cc of normal saline. No evidence of infiltration noted. Patient tolerated well.
[2021-02-22] MEDS ORDERED: PROCHLORPERAZINE EDISYLATE 10 MG/2 ML VIAL IVP ONE (07:45)
[2021-02-22] MEDS ORDERED: PROCHLORPERAZINE EDISYLATE 10 MG/2 ML VIAL ONE (07:47)
--- NOTE | 2021-02-22 08:02 | NUR ---
Radiology at bedside for CXR.
[2021-02-22 08:04] LABS: BASOPHILS % (AUTO) 0.3 % (0.0-2.0); EOSINOPHILS % (AUTO) 0.1 % (0.0-4.0); HEMATOCRIT 40.5 % (36-48); HEMOGLOBIN 13.4 g/dL (12.0-16.0); LYMPHOCYTES # (AUTO) 1.2 K/uL (1.0-5.5); MEAN CORPUSCULAR HEMOGLOBIN 30 pg (27-31); MEAN CORPUSCULAR HGB CONC 33 % (32-36); MEAN CORPUSCULAR VOLUME 89 fL (79.0-98.0); MONOCYTES # (AUTO) 0.5 K/uL (0.0-1.0); MONOCYTES % (AUTO) 6.6 % (1.7-9.3); NEUTROPHILS # (AUTO) 5.6 K/uL (1.8-7.7); PLATELET COUNT (AUTO) 198 K/uL (130-430); RED BLOOD CELL COUNT(AUTO) 4.55 MIL/uL (4.2-6.2); RED CELL DISTRIBUTION WIDTH 14.4 % (9.0-15.0); WHITE BLOOD COUNT (AUTO) 7.3 K/uL (4.8-10.8)
[2021-02-22 08:52] LABS: CALCIUM 8.7 mg/dL (8.4-11.0); CREATININE 0.86 mg/dL (0.55-1.30); POTASSIUM 3.1 mmol/L (3.5-5.1); TOTAL BILIRUBIN 0.2 mg/dL (0.0-1.0)
[2021-02-22 08:53] LABS: ALBUMIN 3.6 g/dL (3.4-4.8)
[2021-02-22] MEDS ORDERED: KCL 20 mEq in 100 mL (PREMIX) 100 ML IV ONE (09:00)
--- NOTE | 2021-02-22 13:00 | NUR ---
Patient given written and verbal discharge instructions and verbalizes understanding. ER MD discussed with patient the results and treatment provided. Patient in stable condition. ID arm band removed. IV catheter removed intact and dressing applied, no active bleeding. No prescriptions given. Patient educated on pain management and to follow up with PMD. Pain Scale 0. Opportunity for questions provided and answered. Medication side effect fact sheet provided.
[2021-02-22 13:06] VITALS: BP_SYST 106
== END 2021-02-22 13:00 | disposition home or self-care (01) ==
LOC: SED 06:31
DX: U07.1 COVID-19 (principal); E87.6 Hypokalemia; R11.2 Nausea with vomiting, unspecified; Z88.6 Allergy status to analgesic agent; Z88.8 Allergy status to other drugs, medicaments and biological substances; Z91.040 Latex allergy status; Z79.899 Other long term (current) drug therapy
CPT/HCPCS: 36415; 71045; 80053; 84702; 85025; 87426; 93005; 94640; 96361; 96365; 96366; 96375; 99285; J0780; J3480; J7030

== ENCOUNTER 2021-04-26 17:51 | Emergency (ER) | payer OTHER, MEDICAID, SELFPAY ==
[~2021-04-26] VITALS: Ht 162.6 cm; Wt 98.0 kg
[2021-04-26 18:17] VITALS: BP_SYST 127
--- NOTE | 2021-04-26 21:00 | NUR ---
CALL PT NAME IN THE WR.NO ANSWER
--- NOTE | 2021-04-26 21:05 | NUR ---
CALL PT NAME IN THE WR.NO ANSWER
--- NOTE | 2021-04-26 21:10 | NUR ---
CALL PT NAME IN THE WR.NO ANSWER
== END 2021-04-26 21:10 | disposition left against medical advice (07) ==
LOC: SED 17:51
DX: H92.01 Otalgia, right ear (principal); Z53.21 Procedure and treatment not carried out due to patient leaving prior to being seen by health care provider

== ENCOUNTER 2021-06-06 18:18 | Emergency (ER) | payer OTHER, MEDICAID ==
[~2021-06-06] VITALS: Ht 172.7 cm; Wt 104.3 kg
[2021-06-06 18:30] VITALS: BP_SYST 115
--- NOTE | 2021-06-06 18:34 | NUR ---
DR SANDHU IN ROOM FOR EXAM.
[2021-06-06] MEDS ORDERED: IPRATROPIUM BROM 0.5 MG/2.5 ML VIAL.NEB (ATROVENT) INH ONE (18:39)
[2021-06-06] MEDS ORDERED: ALBUTEROL SULFATE 0.083% 2.5 MG/3 ML VIAL.NEB INH ONE ×2 (18:39→18:45)
--- NOTE | 2021-06-06 18:41 | NUR ---
PT COMES TO ER WITH C/O SOB SINCE 1100 TODAY, STATES SHE WORKED ALL DAY BUT LEFT WORK 1 HR EARLY TO GO HOME AND ADMINISGTER HERSELF BREATHINFG TXS. SHE DID 3 BREATHING TREATMENTS WITH NO RELIEF. PT IN NAD. RESP EVEN AND UNLABORED, ON RA @98%, LS- MILD WHEEZES SANTOSH UPPER BASES. NO TACHYPNEW, NO RETARCTIONS NOTED. PT ABLE TO SPEAK IN FULL SENTENCES. DENIES ANY CP AT THIS TIME. SKIN W/D/I. RT CALLED FOR TX.
--- NOTE | 2021-06-06 18:44 | NUR ---
Note jesus alberto in EDM - 06/06/21 at 1845 by ADIEL Patient to ER bed 6 to [facility] for evaluation. Side rails up. Report given to LYN LOAIZA.
--- NOTE | 2021-06-06 18:44 | NUR ---
RT AT BEDSIDE.
[2021-06-06] MEDS ORDERED: IPRATROPIUM/ALBUTEROL SULFATE 3 ML AMPUL.NEB (DUONEB) INH ONE ×2 (18:45)
--- NOTE | 2021-06-06 19:58 | NUR ---
Covid test cancelled per md and patient.
[2021-06-06 20:11] VITALS: BP_SYST 110
--- NOTE | 2021-06-06 20:19 | NUR ---
Patient discharged home, a&ox4, stable, discharged instructions given, all questions answered. needs attended. walk to ed door with steady gait.
== END 2021-06-06 20:08 | disposition home or self-care (01) ==
LOC: SED 18:18
DX: J45.901 Unspecified asthma with (acute) exacerbation (principal); Z88.8 Allergy status to other drugs, medicaments and biological substances; Z79.899 Other long term (current) drug therapy
CPT/HCPCS: 94640; 99283; J7613

== ENCOUNTER 2021-10-04 20:15 | Emergency (ER) | payer OTHER, MEDICAID ==
[~2021-10-04] VITALS: Ht 162.6 cm; Wt 96.2 kg
--- NOTE | 2021-10-04 20:15 | NUR ---
Patient triaged and placed in waiting room. VSS and patient appears in no acute distress at this time. Accompanied by self , awaiting available bed, and MD notified of need for MSE.
--- NOTE | 2021-10-04 20:15 | NUR ---
Report given to Dr Gould
--- NOTE | 2021-10-04 20:17 | NUR ---
Pt A&Ox4, ambulatory, intact ROM, no facial drop noted, VSS, respirations even and unlabored, cap refill <3.
[2021-10-04 20:18] VITALS: BP_SYST 118
--- NOTE | 2021-10-04 22:15 | NUR ---
Patient to ER bed 7 to gown for evaluation. Side rails up. Report given to CAMILA LOAIZA(ERWIN).
--- NOTE | 2021-10-04 22:40 | NUR ---
ER Dr. Davenport at bedside examining patient.
[2021-10-04] MEDS ORDERED: MORPHINE 2 MG/ML INJ. SYRINGE IVP ONE (22:45)
[2021-10-04] MEDS ORDERED: PROCHLORPERAZINE EDISYLATE 10 MG/2 ML VIAL IVP ONE (22:45)
[2021-10-04] MEDS ORDERED: DEXAMETHASONE SOD PHOSPHATE 10 MG/ML VIAL IVP ONE (22:45)
[2021-10-04 23:41] LABS: BARBITURATE, URINE NEGATIVE (NEG <=200); BENZODIAZEPINE, URINE NEGATIVE (NEG <=150); CANNABINOID, URINE NEGATIVE (NEG <=50); COCAINE, URINE NEGATIVE (NEG <=150); METHAMPHETAMINES SCREEN,URINE NEGATIVE (NEG <=500); OPIATE, URINE NEGATIVE (NEG <=100); PHENCYCLIDINE SCREEN,URINE NEGATIVE (NEG <=25); UR TRICYCLIC ANTIDEPRESSANTS NEGATIVE (NEG <=300); URINE AMPHETAMINE NEGATIVE (NEG <=500); URINE METHADONE NEGATIVE (NEG <=200); URINE OXYCODONE SCREEN NEGATIVE (NEG <=100); URINE PROPOXYPHENE SCREEN NEGATIVE (NEG <=300)
[2021-10-04 23:50] LABS: BASOPHILS # (AUTO) 0.1 K/uL (0.0-0.2); BASOPHILS % (AUTO) 0.8 % (0.0-2.0); EOSINOPHILS # (AUTO) 0.1 K/uL (0.0-0.4); EOSINOPHILS % (AUTO) 1.2 % (0.0-4.0); HEMATOCRIT 37.6 % (36-48); HEMOGLOBIN 12.5 g/dL (12.0-16.0); LYMPHOCYTES # (AUTO) 2.5 K/uL (1.0-5.5); LYMPHOCYTES % (AUTO) 36.5 % (20.5-51.5); MEAN CORPUSCULAR HEMOGLOBIN 29 pg (27-31); MEAN CORPUSCULAR HGB CONC 33 % (32-36); MEAN CORPUSCULAR VOLUME 88 fL (79.0-98.0); MONOCYTES # (AUTO) 0.5 K/uL (0.0-1.0); MONOCYTES % (AUTO) 6.9 % (1.7-9.3); NEUTROPHILS # (AUTO) 3.7 K/uL (1.8-7.7); NEUTROPHILS % (AUTO) 54.6 % (40.0-70.0); PLATELET COUNT (AUTO) 219 K/uL (130-430); RED BLOOD CELL COUNT(AUTO) 4.27 MIL/uL (4.2-6.2); RED CELL DISTRIBUTION WIDTH 14.4 % (9.0-15.0); WHITE BLOOD COUNT (AUTO) 6.9 K/uL (4.8-10.8)
[2021-10-04 23:53] LABS: ANION GAP 6 (5-15); CALCIUM 9.5 mg/dL (8.4-11.0); CHLORIDE 104 mmol/L (98-107); CREATININE 0.61 mg/dL (0.55-1.30); GLUCOSE 93 mg/dL (70-99); POTASSIUM 3.7 mmol/L (3.5-5.1); SODIUM SERUM 139 mmol/L (136-145); UREA NITROGEN, BLOOD 17 mg/dL (8-21)
[2021-10-04 23:57] LABS: GFR AFRICAN AMERICAN 147 mL/min (>90)
[2021-10-04 23:58] LABS: ALANINE AMINOTRANSFERASE 21 U/L (12-78); ALBUMIN 3.6 g/dL (3.4-4.8); ASPARTATE AMINOTRANSFERASE 12 U/L (10-37); TOTAL BILIRUBIN < 0.1 mg/dL (0.0-1.0)
[2021-10-05] MEDS ORDERED: IOHEXOL 350 mgI/mL, 150 ML INFUS..BTL IV ONE (00:12)
--- NOTE | 2021-10-05 00:15 | NUR ---
Pt consent received for CTA w/contrast.
[2021-10-05] MEDS ORDERED: PHE25 PO (01:22)
[2021-10-05] MEDS ORDERED: BUTA1CAP43 PO (01:22)
[2021-10-05] MEDS ORDERED: DIPHENHYDRAMINE HCL 50 MG CAPSULE PO ONE (01:30)
--- NOTE | 2021-10-05 01:39 | NUR ---
Patient given written and verbal discharge instructions and verbalizes understanding. ER MD Davenport discussed with patient the results and treatment provided. Patient in stable condition. ID arm band removed. IV catheter removed intact and dressing applied, no active bleeding. Rx of Fioricet and Phenergan sent to pharmacy of choice. Patient educated to follow up with PMD for Neuro consult. Pain Scale 0/10. Pt given Benadryl prior to discharge and confirmed she had [employer] transportation picking her up and would not be driving. Opportunity for questions provided and answered. Medication side effect fact sheet provided.
[2021-10-05 01:48] VITALS: BP_SYST 121
== END 2021-10-05 01:48 | disposition home or self-care (01) ==
LOC: SED 20:15
DX: G43.409 Hemiplegic migraine, not intractable, without status migrainosus (principal); J45.909 Unspecified asthma, uncomplicated; Z88.6 Allergy status to analgesic agent; Z88.8 Allergy status to other drugs, medicaments and biological substances; Z91.040 Latex allergy status; Z79.899 Other long term (current) drug therapy
CPT/HCPCS: 36415; 70450; 70496; 76376 ×2; 80053; 80307; 81025; 83735; 85025; 93005; 96374; 96375; 99284; J0780; J1100; J2270; Q0163; Q9967

== ENCOUNTER 2021-12-11 10:52 | Emergency (ER) | payer OTHER, MEDICAID ==
[~2021-12-11] VITALS: Ht 162.6 cm; Wt 94.3 kg
[~2021-12-11 10:52] MED LIST changes: +BUTA1CAP43 PO; +PHE25 PO
[2021-12-11 11:02] VITALS: BP_SYST 126
--- NOTE | 2021-12-11 14:15 | NUR ---
Attempted to call for patient in waiting room; no answer. Went outside to look for pt; not found.
--- NOTE | 2021-12-11 16:00 | NUR ---
Second attempt to find patient; not in waiting room and didn't answer when called outside.
== END 2021-12-11 14:15 | disposition left against medical advice (07) ==
LOC: SED 10:52
DX: M79.671 Pain in right foot (principal); Z53.21 Procedure and treatment not carried out due to patient leaving prior to being seen by health care provider

== ENCOUNTER 2022-10-09 21:37 | Emergency (ER) | payer OTHER, MEDICAID ==
[2022-10-09 21:45] VITALS: BP_SYST 137
[2022-10-09] MEDS ORDERED: methylPREDNISolone SOD SUCC/PF 62.5 MG/ML VIAL IVP ONE (22:15)
[2022-10-09] MEDS ORDERED: IPRATROPIUM/ALBUTEROL SULFATE 3 ML AMPUL.NEB (DUONEB) INH ONE (22:15)
[2022-10-09 22:20] LABS: BASOPHILS # (AUTO) 0.1 K/uL (0.0-0.2); BASOPHILS % (AUTO) 0.7 % (0.0-2.0); EOSINOPHILS # (AUTO) 0.1 K/uL (0.0-0.4); EOSINOPHILS % (AUTO) 1.4 % (0.0-4.0); HEMATOCRIT 36.5 % (36-48); HEMOGLOBIN 12.1 g/dL (12.0-16.0); LYMPHOCYTES # (AUTO) 2.9 K/uL (1.0-5.5); LYMPHOCYTES % (AUTO) 36.2 % (20.5-51.5); MEAN CORPUSCULAR HEMOGLOBIN 29 pg (27-31); MEAN CORPUSCULAR HGB CONC 33 % (32-36); MEAN CORPUSCULAR VOLUME 87 fL (79.0-98.0); MONOCYTES # (AUTO) 0.5 K/uL (0.0-1.0); MONOCYTES % (AUTO) 6.7 % (1.7-9.3); NEUTROPHILS # (AUTO) 4.3 K/uL (1.8-7.7); PLATELET COUNT (AUTO) 247 K/uL (130-430); RED BLOOD CELL COUNT(AUTO) 4.19 MIL/uL (4.2-6.2); RED CELL DISTRIBUTION WIDTH 14.8 % (9.0-15.0); WHITE BLOOD COUNT (AUTO) 7.9 K/uL (4.8-10.8)
[2022-10-09 22:46] LABS: CALCIUM 8.4 mg/dL (8.4-11.0); CREATININE 0.71 mg/dL (0.55-1.30)
[2022-10-09 22:50] LABS: ALBUMIN 3.3 g/dL (3.4-4.8); TOTAL BILIRUBIN 0.2 mg/dL (0.0-1.0)
[2022-10-10] MEDS ORDERED: ALBU2.5V7 INH ×2 (01:14→04:32)
[2022-10-10] MEDS ORDERED: PRED20TA PO ×2 (01:14→04:32)
[2022-10-10] MEDS ORDERED: BENZ100C92 PO ×2 (01:16→04:32)
[2022-10-10 01:45] VITALS: BP_SYST 132
== END 2022-10-10 01:45 | disposition home or self-care (01) ==
LOC: SED 21:37
DX: J45.901 Unspecified asthma with (acute) exacerbation (principal); J06.9 Acute upper respiratory infection, unspecified; R05.9 Cough, unspecified; R09.81 Nasal congestion; R06.02 Shortness of breath; Z88.5 Allergy status to narcotic agent; Z88.6 Allergy status to analgesic agent; Z91.040 Latex allergy status; Z79.899 Other long term (current) drug therapy
CPT/HCPCS: 99284; 96374; 71045; 80053; 85025; 36415; 94640; J2930

== ENCOUNTER 2022-11-13 09:47 | Emergency (ER) | payer OTHER, MEDICAID ==
[~2022-11-13] VITALS: Ht 167.6 cm; Wt 108.9 kg
[~2022-11-13 09:47] MED LIST changes: +ALBU2.5V7 INH; +BENZ100C92 PO; +PRED20TA PO
[2022-11-13 10:00] VITALS: BP_SYST 106
[2022-11-13] MEDS ORDERED: MAG HYDROX/AL HYDROX/SIMETH 30 ML, DICYCLOMINE HCL 20 MG, LIDOCAINE VISCOUS 2% 15ML (PO... PO ONE ×3 (10:15)
[2022-11-13] MEDS ORDERED: RACEPINEPHRINE HCL 0.5 ML VIAL.NEB INH ONE ×2 (10:30→10:34)
[2022-11-13] MEDS ORDERED: ONDANSETRON 4 MG ODT TAB PO ONE (10:30)
[2022-11-13] MEDS ORDERED: ONDA-8 TL (12:05)
[2022-11-13] MEDS ORDERED: CETI10CA PO (12:05)
[2022-11-13] MEDS ORDERED: D-ME118S48 PO (12:05)
[2022-11-13] MEDS ORDERED: AMOX500C2 PO (12:06)
[2022-11-13 12:22] VITALS: BP_SYST 106
== END 2022-11-13 12:18 | disposition home or self-care (01) ==
LOC: SED 09:47
DX: J06.9 Acute upper respiratory infection, unspecified (principal); H66.91 Otitis media, unspecified, right ear; R05.9 Cough, unspecified; J02.9 Acute pharyngitis, unspecified; R09.81 Nasal congestion; J45.909 Unspecified asthma, uncomplicated; Z88.5 Allergy status to narcotic agent; Z88.6 Allergy status to analgesic agent; Z91.040 Latex allergy status; Z79.899 Other long term (current) drug therapy
CPT/HCPCS: 99283; 71045; 94640; 94760; Q0162; J2001

== ENCOUNTER 2023-01-09 09:12 | Emergency (ER) | payer OTHER, MEDICAID ==
[~2023-01-09] VITALS: Ht 162.6 cm; Wt 89.8 kg
[~2023-01-09 09:12] MED LIST changes: +AMOX500C2 PO; +CETI10CA PO; +D-ME118S48 PO; +ONDA-8 TL
[2023-01-09 09:15] VITALS: BP_SYST 123; PULSE 94; RESP 18; TEMP 98.5; O2SAT 99
--- NOTE | 2023-01-09 09:15 | NUR ---
Patient to ER bed 06 to gown for evaluation. Side rails up.
--- NOTE | 2023-01-09 09:20 | NUR ---
PT RECEIVED, CARE ASSUMED. PT BIB EMS FOR EVALUATION OF LEFT LEG PAIN S/P FALL FROM BED. PT HAS PNEUMATIC SPLINT ON LEFT LEG. PT C/O 9/10 PAIN TO LEFT LEG. NO DEFORMATIES NOTE AT THIS TIME. DR. ELLISON AT BEDSIDE. WILL CONTINUE TO MONITOR
[2023-01-09] MEDS ORDERED: MORPHINE 4 MG INJ. 4 MG/ML VIAL IVP ONE (10:00)
[2023-01-09] MEDS ORDERED: ONDANSETRON HCL 4 MG/2 ML VIAL IVP ONE (10:00)
--- NOTE | 2023-01-09 10:10 | NUR ---
PT C/O 9/10 PAIN TO LEFT LEG, INSERTED 20G IV TO RIGHT AC, MEDICATED PT. SHORT LEG SPLINT, AND STIRUP PLACED TO LEFT LEG. +CSM TO EXTREMITY.
[2023-01-09] MEDS ORDERED: HYDR-3917 PO (10:37)
--- NOTE | 2023-01-09 11:16 | NUR ---
Patient given written and verbal discharge instructions and verbalizes understanding. ER MD discussed with patient the results and treatment provided. Patient in stable condition. ID arm band removed. Rx of Excello given. Patient educated on pain management and to follow up with PMD. Pain Scale 3/10 . Opportunity for questions provided and answered. Medication side effect fact sheet provided.
[2023-01-09 11:17] VITALS: BP_SYST 123; PULSE 94; RESP 18; TEMP 98.5; O2SAT 99
[2023-01-10] MEDS ORDERED: CEPH250C PO (02:15)
== END 2023-01-09 11:16 | disposition home or self-care (01) ==
LOC: SED 09:12
DX: S82.852A Displaced trimalleolar fracture of left lower leg, initial encounter for closed fracture (principal); J45.909 Unspecified asthma, uncomplicated; Z88.5 Allergy status to narcotic agent; Z88.6 Allergy status to analgesic agent; Z91.040 Latex allergy status; Z79.899 Other long term (current) drug therapy; W01.0XXA Fall on same level from slipping, tripping and stumbling without subsequent striking against object, initial encounter; Y93.89 Activity, other specified; Y92.89 Other specified places as the place of occurrence of the external cause; Y99.8 Other external cause status
CPT/HCPCS: 99284; 96374; 29515; 96375; 73610; J2405; J2270

== ENCOUNTER 2023-01-09 22:10 | Emergency (ER) | payer OTHER, MEDICAID ==
[~2023-01-09] VITALS: Ht 162.6 cm; Wt 89.8 kg
[~2023-01-09 22:10] MED LIST changes: +HYDR-3917 PO
[2023-01-09 22:25] VITALS: BP_SYST 107; PULSE 100; RESP 20; TEMP 98; O2SAT 97
[2023-01-10] MEDS ORDERED: CEPH250C PO (02:15)
[2023-01-10] MEDS ORDERED: HYDROcodone/ACETAMIN 10-325 MG TAB PO ONE (02:15)
[2023-01-10 03:35] VITALS: BP_SYST 104; PULSE 75; RESP 16; TEMP 98.2; O2SAT 98
== END 2023-01-10 03:35 | disposition home or self-care (01) ==
LOC: SED 22:10
DX: S82.852A Displaced trimalleolar fracture of left lower leg, initial encounter for closed fracture (principal); R22.42 Localized swelling, mass and lump, left lower limb; M25.572 Pain in left ankle and joints of left foot; J45.909 Unspecified asthma, uncomplicated; Z88.5 Allergy status to narcotic agent; Z88.6 Allergy status to analgesic agent; Z91.040 Latex allergy status; Z79.899 Other long term (current) drug therapy; X58.XXXA Exposure to other specified factors, initial encounter; Y93.89 Activity, other specified; Y92.89 Other specified places as the place of occurrence of the external cause; Y99.8 Other external cause status
CPT/HCPCS: 93971; 99284

== ENCOUNTER 2023-01-18 09:17 | Day surgery (SDC) | payer OTHER, MEDICAID ==
[2023-01-16 10:56] LABS: BILIRUBIN,URINE NEGATIVE (NEGATIVE); BLOOD, URINE NEGATIVE (NEGATIVE); CLARITY/URINE CLEAR (CLEAR); COLOR,URINE YELLOW (YELLOW); GLUCOSE,URINE NEGATIVE (NEGATIVE); KETONES,URINE NEGATIVE (NEGATIVE); LEUKOCYTE ESTERASE ,URINE NEGATIVE (NEGATIVE); NITRITE, URINE NEGATIVE (NEGATIVE); PH,URINE 5.5 (5.0-8.0); PROTEIN URINE NEGATIVE (NEGATIVE); UROBILINOGEN,URINE 0.2 (0.2-1.0)
[2023-01-16 10:56] LABS: BASOPHILS # (AUTO) 0.1 K/uL (0.0-0.2); BASOPHILS % (AUTO) 1.4 % (0.0-2.0); EOSINOPHILS # (AUTO) 0.1 K/uL (0.0-0.4); EOSINOPHILS % (AUTO) 0.9 % (0.0-4.0); HEMATOCRIT 38.3 % (36-48); HEMOGLOBIN 12.4 g/dL (12.0-16.0); LYMPHOCYTES # (AUTO) 2.3 K/uL (1.0-5.5); LYMPHOCYTES % (AUTO) 34.7 % (20.5-51.5); MEAN CORPUSCULAR HEMOGLOBIN 29 pg (27-31); MEAN CORPUSCULAR HGB CONC 32 % (32-36); MEAN CORPUSCULAR VOLUME 89 fL (79.0-98.0); MONOCYTES # (AUTO) 0.4 K/uL (0.0-1.0); MONOCYTES % (AUTO) 6.1 % (1.7-9.3); NEUTROPHILS # (AUTO) 3.8 K/uL (1.8-7.7); NEUTROPHILS % (AUTO) 56.9 % (40.0-70.0); PLATELET COUNT (AUTO) 295 K/uL (130-430); RED BLOOD CELL COUNT(AUTO) 4.31 MIL/uL (4.2-6.2); RED CELL DISTRIBUTION WIDTH 15.1 % (9.0-15.0); WHITE BLOOD COUNT (AUTO) 6.6 K/uL (4.8-10.8)
[2023-01-16 11:07] LABS: HCG,QUAL RESULT NEGATIVE (NEGATIVE)
[~2023-01-18] VITALS: Ht 162.6 cm; Wt 89.4 kg
[~2023-01-18 09:17] MED LIST changes: +ACETAMINOPHEN 500 MG TABLET PO ONE; +CEFAZOLIN SOD 2 GM in D5W 50 ML IV ONE; +HYDROcodone/ACETAMIN 5-325 MG TAB (NORCO/ VICODIN) PO ONE; +SCOPOLAMINE HYDROBROMIDE 1 MG PATCH .72 H (TRANSDERM-SCOP) TD ONE
[2023-01-18] MEDS ORDERED: ACETAMINOPHEN 500 MG TABLET ONE (09:38)
[2023-01-18] MEDS ORDERED: SCOPOLAMINE HYDROBROMIDE 1 MG PATCH .72 H (TRANSDERM-SCOP) TD ONE (09:39)
[2023-01-18] MEDS ORDERED: HYDROcodone/ACETAMIN 5-325 MG TAB (NORCO/ VICODIN) ONE (09:39)
[2023-01-18] MEDS ORDERED: ACETAMINOPHEN I.V. 1000 MG 0 ML IV ONE (11:01)
[2023-01-18 11:32] VITALS: O2SAT 96
[2023-01-18] MEDS ORDERED: LIDOCAINE 2%, 20 ML MDV ONE (12:00)
[2023-01-18] MEDS ORDERED: MIDAZOLAM HCL/PF 2 MG/2 ML SYRINGE ONE (12:00)
[2023-01-18] MEDS ORDERED: fentaNYL CITRATE/PF 100 MCG/2 ML AMP ONE (12:00)
[2023-01-18] MEDS ORDERED: DEXAMETHASONE SOD PHOSPHATE 4 MG/ML VIAL ONE (12:00)
[2023-01-18] MEDS ORDERED: PROPOFOL 200MG/ 20ML VIAL (DIPRIVAN) IV ONE (12:00)
[2023-01-18] MEDS ORDERED: SEVOFLURANE 15 MIN GAS INH ONE (12:00)
[2023-01-18] MEDS ORDERED: ePHEDrine sulfate 50 MG/ML VIAL ONE (12:00)
[2023-01-18] MEDS ORDERED: HYDROmorphone 1 MG/ML INJ. CARTRIDGE IVP PRN ×2 (13:15)
[2023-01-18] MEDS ORDERED: MEPERIDINE HCL/PF 25 MG/ML DISP.SYRIN IVP PRN (13:15)
[2023-01-18] MEDS ORDERED: METOCLOPRAMIDE HCL 10 MG/2 ML VIAL IVP PRN (13:15)
[2023-01-18] MEDS ORDERED: MIDAZOLAM HCL 2 MG/2 ML VIAL (VERSED) IVP PRN (13:15)
[2023-01-18] MEDS ORDERED: HYDROmorphone 1 MG/ML INJ. CARTRIDGE ONE (14:58)
[2023-01-18 17:26] VITALS: BP_SYST 107; PULSE 86; RESP 17
[2023-01-19] MEDS ORDERED: OXYC-128 PO (18:40)
== END 2023-01-18 16:45 | disposition home or self-care (01) ==
LOC: SDS 09:17 → SMU 09:20 → SDS 16:45
PROVIDERS: ATTEND Student in an Organized Health Care Education/Training Program
DX: S82.852A Displaced trimalleolar fracture of left lower leg, initial encounter for closed fracture (principal); J45.909 Unspecified asthma, uncomplicated; Z88.1 Allergy status to other antibiotic agents; Z91.040 Latex allergy status; G40.909 Epilepsy, unspecified, not intractable, without status epilepticus; K21.9 Gastro-esophageal reflux disease without esophagitis; E66.9 Obesity, unspecified; W19.XXXA Unspecified fall, initial encounter; Y93.89 Activity, other specified; Y92.89 Other specified places as the place of occurrence of the external cause; Y99.8 Other external cause status
CPT/HCPCS: 84703; 85025; 87081; 36415; 81003; 27822; 82962; 76000; J0690; J1100; J2001; J3465; J2704; J3010; J1170; J7060; C1769; C1713 ×8; J0131

== ENCOUNTER 2023-01-19 15:20 | Emergency (ER) | payer OTHER, MEDICAID ==
[~2023-01-19] VITALS: Ht 162.6 cm; Wt 89.8 kg
[~2023-01-19 15:20] MED LIST changes: -ACETAMINOPHEN 500 MG TABLET PO ONE; -CEFAZOLIN SOD 2 GM in D5W 50 ML IV ONE; -HYDROcodone/ACETAMIN 5-325 MG TAB (NORCO/ VICODIN) PO ONE; -SCOPOLAMINE HYDROBROMIDE 1 MG PATCH .72 H (TRANSDERM-SCOP) TD ONE
[2023-01-19 16:25] VITALS: BP_SYST 136; PULSE 74; RESP 18; TEMP 97.3; O2SAT 98
--- NOTE | 2023-01-19 16:31 | NUR ---
Patient to ER bed 4 to gown for evaluation. Side rails up. Report given to IRVING.
[2023-01-19 16:42] LABS: BASOPHILS # (AUTO) 0.1 K/uL (0.0-0.2); BASOPHILS % (AUTO) 0.6 % (0.0-2.0); EOSINOPHILS % (AUTO) 0.2 % (0.0-4.0); HEMATOCRIT 39.3 % (36-48); HEMOGLOBIN 12.6 g/dL (12.0-16.0); LYMPHOCYTES # (AUTO) 3.2 K/uL (1.0-5.5); LYMPHOCYTES % (AUTO) 30.3 % (20.5-51.5); MEAN CORPUSCULAR HEMOGLOBIN 29 pg (27-31); MEAN CORPUSCULAR HGB CONC 32 % (32-36); MEAN CORPUSCULAR VOLUME 90 fL (79.0-98.0); MONOCYTES # (AUTO) 0.7 K/uL (0.0-1.0); NEUTROPHILS # (AUTO) 6.6 K/uL (1.8-7.7); NEUTROPHILS % (AUTO) 61.9 % (40.0-70.0); PLATELET COUNT (AUTO) 306 K/uL (130-430); RED BLOOD CELL COUNT(AUTO) 4.39 MIL/uL (4.2-6.2); RED CELL DISTRIBUTION WIDTH 15.5 % (9.0-15.0); WHITE BLOOD COUNT (AUTO) 10.7 K/uL (4.8-10.8)
[2023-01-19 16:56] LABS: CALCIUM 8.9 mg/dL (8.4-11.0); CREATININE 0.82 mg/dL (0.55-1.30)
[2023-01-19 17:30] LABS: ALBUMIN 3.5 g/dL (3.4-4.8); TOTAL BILIRUBIN 0.3 mg/dL (0.0-1.0)
--- NOTE | 2023-01-19 17:30 | NUR ---
ER at bedside examining patient.
--- NOTE | 2023-01-19 18:00 | NUR ---
Patient placed on bedpan following ulltrasound of leg.
[2023-01-19] MEDS ORDERED: MORPHINE 4 MG INJ. 4 MG/ML VIAL IM ONE ×2 (18:30→18:45)
[2023-01-19] MEDS ORDERED: OXYC-128 PO (18:40)
[2023-01-19] MEDS ORDERED: BACITRACIN ZINC 15 GM TOPICAL OINTMENT TP SCH (18:45)
--- NOTE | 2023-01-19 19:33 | NUR ---
RECIEVED REPORT FROM IRVING LOAIZA
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
[2023-01-19] MEDS ORDERED: BACITRACIN 1 GM OINT TP ONE (19:41)
--- NOTE | 2023-01-19 19:47 | NUR ---
DID NOT ADMINISTER BACITRACIN PER DR SOLIS ORDER. HARD CAST PREVENTS BACITRACIN ADMINISTRATION. PT TOLD TO FOLLOW UP WITH PRIMARY PHYSICIAN
--- NOTE | 2023-01-19 19:52 | NUR ---
Patient given written and verbal discharge instructions and verbalizes understanding. ER MD discussed with patient the results and treatment provided. Patient in stable condition. ID arm band removed. IV catheter removed intact and dressing applied, no active bleeding. Rx of PERCOCET 5-325 given. Patient educated on EDEMA and to follow up with PMD. Pain Scale . Opportunity for questions provided and answered. Medication side effect fact sheet provided.
[2023-01-19] MEDS ORDERED: SILVER SULFADIAZINE 1%, 25 GM TOPICAL CREAM (SSD) TP ONE (19:56)
[2023-01-19 19:59] VITALS: BP_SYST 136; PULSE 74; RESP 18; TEMP 97.3; O2SAT 98
== END 2023-01-19 19:52 | disposition home or self-care (01) ==
LOC: SED 15:20
DX: R60.0 Localized edema (principal); M25.572 Pain in left ankle and joints of left foot; J45.909 Unspecified asthma, uncomplicated; Z88.5 Allergy status to narcotic agent; Z88.6 Allergy status to analgesic agent; Z91.040 Latex allergy status; Z79.899 Other long term (current) drug therapy
CPT/HCPCS: 99285; 93971; 80053; 83880; 85025; 36415; 73610; 96372; 83605; 82397; J2270

== ENCOUNTER 2023-01-27 16:22 | Emergency (ER) | payer OTHER, MEDICAID ==
[~2023-01-27] VITALS: Ht 162.6 cm; Wt 86.2 kg
[~2023-01-27 16:22] MED LIST changes: +OXYC-128 PO
[2023-01-27 16:29] VITALS: BP_SYST 120; PULSE 99; RESP 18; TEMP 98.2; O2SAT 97
--- NOTE | 2023-01-27 16:29 | NUR ---
Patient triaged and placed in waiting room. VSS and patient appears in no acute distress at this time. Accompanied by FAMILY, awaiting available bed, and MD notified of need for MSE.
--- NOTE | 2023-01-27 16:31 | NUR ---
PATIENT BROUGHT WITH SPLINT TO HER LEFT ANKLE WAS TOLD BY ORTHO TO PRESENT TO THE ED AFTER WETTING SPLINT IN SHOWER. REQUESTING SPLINT TO BE REMOVED AND CHANGED. NO OTHER COMPLAINTS.
--- NOTE | 2023-01-27 19:11 | NUR ---
Patient to [facility] for evaluation. Report given to ALICJA May
[2023-01-27 19:50] VITALS: BP_SYST 118; PULSE 95; RESP 18; TEMP 98.2; O2SAT 97
--- NOTE | 2023-01-27 19:50 | NUR ---
Patient given written and verbal discharge instructions and verbalizes understanding. ER Dr Urias discussed with patient the results and treatment provided. Patient in stable condition. ID arm band removed. No Rx given. Patient educated on pain management and to follow up with PMD. Pain Scale 0/10. Opportunity for questions provided and answered. Medication side effect fact sheet provided.
== END 2023-01-27 19:50 | disposition home or self-care (01) ==
LOC: SED 16:22
DX: Z46.89 Encounter for fitting and adjustment of other specified devices (principal); Z87.81 Personal history of (healed) traumatic fracture; J45.909 Unspecified asthma, uncomplicated; Z88.5 Allergy status to narcotic agent; Z88.6 Allergy status to analgesic agent; Z91.040 Latex allergy status; Z79.899 Other long term (current) drug therapy
CPT/HCPCS: 99283